=== PATIENT | female | born 1960 | race African-American/Black ===

== ENCOUNTER 2021-09-10 00:44 | Emergency (ER) | payer BC, MEDICAID ==
[~2021-09-10] VITALS: Ht 167.6 cm; Wt 108.0 kg
[2021-09-10 05:44] LABS: BASOPHILS % 0.2 % (0.0-2.0); HEMATOCRIT. 46.4 % (36.0-48.0); HEMOGLOBIN. 15.5 g/dL (12.0-16.0); LYMPHOCYTES % 9.3 % (20.0-50.0); MEAN CORPUSCULAR HEMOGLOBIN 30.2 pg (28.0-32.0); MEAN CORPUSCULAR VOLUME 90.6 fL (81.0-99.0); MEAN PLATELET VOLUME 7.7 fl (7.4-10.4); MONOCYTES % 3.4 % (2.0-8.0); NEUTROPHILS % 87.1 % (40.0-76.0); PLATELET 338 x1000/uL (130-400); RED BLOOD CELL COUNT 5.12 mill/uL (4.2-5.4); RED CELL DISTRIBUTION WIDTH 14.8 % (11.6-14.6)
[2021-09-10 05:50] LABS: CHLORIDE 107 mEq/L (98-107)
[2021-09-10 05:58] LABS: HCG SCREEN NEGATIVE
[2021-09-10 09:23] LABS: CLARITY URINE CLOUDY (CLEAR); COLOR URINE DK YELLOW (YELLOW); KETONES URINE TRACE (NEGATIVE); LEUKOCYTE ESTERASE URINE 2+ (NEGATIVE); NITRITE URINE NEGATIVE (NEGATIVE); OCCULT BLOOD URINE NEGATIVE (NEGATIVE); PROTEIN URINE 1+ (NEGATIVE); SPECIFIC GRAVITY URINE 1.029 (1.005-1.030)
[2021-09-10 11:40] VITALS: BP 151/81
== END 2021-09-10 11:53 | disposition home or self-care (01) ==
LOC: ER 00:44
DX: R10.32 Left lower quadrant pain (principal); R11.2 Nausea with vomiting, unspecified
CPT/HCPCS: 36415; 74176; 76770; 76830; 76856; 80048; 81003; 84703; 85025; 93005; 99285